=== PATIENT | female | born 1990 | race African-American/Black ===

== ENCOUNTER 2022-01-27 05:53 | Emergency (ER) | payer SELFPAY ==
[~2022-01-27] VITALS: Ht 167.6 cm; Wt 89.8 kg
[2022-01-27 05:58] VITALS: BP 105/60
--- NOTE | 2022-01-27 06:06 | NUR ---
PATIENT AMBULATED TO BED 7
--- NOTE | 2022-01-27 06:10 | NUR ---
ER MD AT BEDSIDE EXAMINING PT
--- NOTE | 2022-01-27 06:10 | NUR ---
31/F BIB SELF C/O NON PRODUCTIVE DRY COUGH X2.5WKS. PATIENT STATED THAT SHE GOT DX WITH BRONCHITIS IN [place] BY HER PCP WHO GAVE HER ALBUTEROL, ABX AND COUGH SUPPRESANT. RR EVEN AND UNLABORED. LUNGS SOUND CLEAR MIHIR. PMHX RA, LUPUS AND CHRONIC BRONCHITIS
[2022-01-27] MEDS ORDERED: ACETAMIN/CODEINE 120/12MG-5ML 5 ML UDC PO ONE (06:20)
--- NOTE | 2022-01-27 06:25 | NUR ---
RAD AT BEDSIDE
--- NOTE | 2022-01-27 06:30 | NUR ---
LAB AT BEDSIDE
[2022-01-27 07:00] LABS: ANION GAP 9.2 (8-16); CARBON DIOXIDE 30.8 mmol/L (21-32); CREATININE 0.7 mg/dL (0.6-1.3)
--- NOTE | 2022-01-27 07:13 | NUR ---
REPORT GIVEN TO ANGIE WILDE. TRANSFER OF CARE AT THIS TIME.
--- NOTE | 2022-01-27 07:22 | NUR ---
RECEIVED REPORT FROM NANCY CAMPBELL. ASSUMED CARE AT THIS TIME, PATIENT RESTING IN BED, WILL CONTINUE TO MONITOR.
[2022-01-27] MEDS ORDERED: PRED20TA5 PO (08:41)
[2022-01-27] MEDS ORDERED: [UNRECOGNIZED DRUG - CODE] PO (08:41)
[2022-01-27 08:53] VITALS: BP 118/61
--- NOTE | 2022-01-27 08:53 | NUR ---
Patient discharged with v/s stable. Written and verbal after care instructions ABOUT COUGH AND ACUTE BRONCHITIS given and explained. Patient alert, oriented and verbalized understanding of instructions. Ambulatory with steady gait. All questions addressed prior to discharge. ID band removed. Patient advised to follow up with PMD. Rx of HYDROCODONE-HOMETROPIN SYRUP AND DELTASONE given. Patient educated on indication of medication including possible reaction and side effects. Opportunity to ask questions provided and answered.
== END 2022-01-27 08:53 | disposition home or self-care (01) ==
LOC: MED 05:53
DX: R05.9 Cough, unspecified (principal); Z88.0 Allergy status to penicillin; Z88.6 Allergy status to analgesic agent; Z88.8 Allergy status to other drugs, medicaments and biological substances; Z79.899 Other long term (current) drug therapy
CPT/HCPCS: 36415; 71045; 80048; 85379; 99284; Q0092